=== PATIENT | female | born 1960 | race Caucasian/White ===

== ENCOUNTER → 2021-03-03 | Outpatient (CLI) | payer BC ==
[~2021-03-03] MED LIST: ASPIR LOW81 MG PO; ATENOLOL50 M1 PO; LIPITOR80 MG PO; LISINOPRIL10 M1 PO; LOPID600 M1 PO; PLAVIX75 M1 PO; TENORMIN100 MG PO; TOPROL XL25 MG PO; TOPROL XL50 M1 PO; ZESTRIL10 MG PO; ZOLOFT100 MG PO
== END | disposition home or self-care (01) ==
LOC: COVID19 16:05
PROVIDERS: ATTEND Family Medicine
DX: U07.1 COVID-19 (principal)